=== PATIENT | male | born 1955 | race Caucasian/White ===

== ENCOUNTER → 2018-05-27 12:07 | Outpatient (CLI) | payer OTHER, SELFPAY ==
--- NOTE | 2018-05-27 12:17 | CT_ITS ---
STUDY: CT CHEST WITHOUT CONTRAST REASON FOR EXAM: Male, 62 years old. Calcium over read only. RADIATION DOSAGE (If Supplied By Facility): CTDIvol = ( 17.37 ) mGy, DLP = ( 382.14 ) mGycm TECHNIQUE: Transaxial imaging was performed without the administration of intravenous contrast material. Individualized dose optimization techniques were used for this CT. COMPARISON: None. FINDINGS: The lungs are normal. There is no demonstrated pleural abnormality. There are calcifications of the coronary arteries. There are multiple small lymph nodes within the mediastinum, which are normal in size and morphology most compatible with reactive lymph hyperplasia. Normal hilar regions. Normal unenhanced pulmonary arteries. There is atherosclerotic calcification of the aortic arch arch . Normal osseous structures. There is no demonstrated abnormality of the visualized upper abdomen. CT/CCTA Calcium Scoring IMPRESSION: No acute abnormality is seen. Electronically Signed: Rigo Pressley MD at 11:33 EDT Tel [phone], Service support ,
[2018-05-27 12:24] VITALS: BP 138/78; PULSE 65; RESP 18; O2SAT 96; BMI 35.6
--- NOTE | 2018-05-27 12:59 | CT_ITS ---
STUDY: CT CHEST WITHOUT CONTRAST REASON FOR EXAM: Male, 62 years old. Calcium over read only. RADIATION DOSAGE (If Supplied By Facility): CTDIvol = ( 17.37 ) mGy, DLP = ( 382.14 ) mGycm TECHNIQUE: Transaxial imaging was performed without the administration of intravenous contrast material. Individualized dose optimization techniques were used for this CT. COMPARISON: None. FINDINGS: The lungs are normal. There is no demonstrated pleural abnormality. There are calcifications of the coronary arteries. There are multiple small lymph nodes within the mediastinum, which are normal in size and morphology most compatible with reactive lymph hyperplasia. Normal hilar regions. Normal unenhanced pulmonary arteries. There is atherosclerotic calcification of the aortic arch arch . Normal osseous structures. There is no demonstrated abnormality of the visualized upper abdomen. CT/Limited Chest CT w/CCTA IMPRESSION: No acute abnormality is seen. Electronically Signed: Rigo Pressley MD at 11:33 EDT Tel [phone], Service support ,
--- NOTE | 2018-05-27 20:27 | CA.SCORE ---
Calcium Scoring Date of Study:: 05/27/18 Coronary Calcium Scoring: Coronary calcium score: 57.5 Conclusion: Coronary calcium score: 57.5 Results: Procedure: The patient underwent high resolution CT imaging of the chest on 05/27/2018 with attention being paid to the coronary arteries. The images were analyzed for the presence of coronary artery calcification. The patient was reported as tolerating the procedure well with no obvious complications. Impression: Coronary calcium score: 57.5 According to pre-published reference tables/information a coronary calcium score of 57.5 would be considered as compatible with mild plaque burden and likely minimal to mild coronary artery stenosis. This note was generated with Epic Sciencesation software. It may contain incorrect words, spelling, and punctuation that were not noted in checking the note before signing.
--- NOTE | 2018-05-27 20:31 | CCTA_ITS ---
Calcium Scoring Date of Study:: 05/27/18 Coronary Calcium Scoring: Coronary calcium score: 57.5 Conclusion: Coronary calcium score: 57.5 Results: Procedure: The patient underwent high resolution CT imaging of the chest on 05/27/2018 with attention being paid to the coronary arteries. The images were analyzed for the presence of coronary artery calcification. The patient was reported as tolerating the procedure well with no obvious complications. Impression: Coronary calcium score: 57.5 According to pre-published reference tables/information a coronary calcium score of 57.5 would be considered as compatible with mild plaque burden and likely minimal to mild coronary artery stenosis. This note was generated with [employer] software. It may contain incorrect words, spelling, and punctuation that were not noted in checking the note before signing.
== END ==
PROVIDERS: Family Provider Internal Medicine; PCP Internal Medicine; Visit Provider Internal Medicine
DX: I10 Essential (primary) hypertension (principal); Z82.49 Family history of ischemic heart disease and other diseases of the circulatory system
CPT/HCPCS: 75571; 76380

== ENCOUNTER 2018-06-10 08:25 | Day surgery (SDC) | payer OTHER, SELFPAY ==
[2018-06-10] VITALS (7 sets, daily range): BP systolic 111–161; BP diastolic 53–98; PULSE 57–67; RESP 16; TEMP 36.6–37.1; O2SAT 91–98; BMI 35.4
--- NOTE | 2018-06-10 09:46 | PCM.HP.STD ---
Problem List (1) Screening for intestinal cancer Status: Acute History of Present Illness Date of Admission: 06/10/18 The patient is a 62 year old M who presents for screening colonoscopy. In 2012 he had his most recent colonoscopy. He has had a personal history of 2011 of a colon polyp and in situ carcinoid of the terminal ileum. He states he underwent a localized resection of the small bowel area possibly involving the cecum. He otherwise enjoys good health. He is obese. He denies chest pain or shortness of breath. No change of bowel habits. States that he underwent a [facility] physical per Dr. Beckie Xavier with no untoward findings. The patient takes some low-dose metoprolol. Past Medical History Allergies No Known Allergies Allergy (Verified 06/08/18 09:38) Home Medications: Ambulatory Orders Medication Instructions Recorded Atenolol [Tenormin (beta Oumar)] 25 mg PO QHS 06/08/18 Cholecalciferol (Vitamin D3) 1,000 unit PO DAILY 06/08/18 [Vitamin D3] Fexofenadine HCl [Marcelle Allergy] 60 mg PO DAILY 06/08/18 L-Certaline 2 tab PO DAILY 06/08/18 Magnesium 250 mg PO QHS 06/08/18 Multivitamin [Multiple Vitamins] 1 each PO DAILY 06/08/18 Smoking Status: Never smoker Tobacco Use: Non-smoker Review of Systems Constitutional: Denies: Fever Cardiovascular: Denies: Chest Pain Respiratory: Denies: Cough Gastrointestinal: Denies: Abdominal Pain Musculoskeletal: Denies: Muscle pain Skin: Denies: Dryness Neurological: Denies: Balance problems - Lower extremity varicosities Psychiatric: Reports: Anxiety Endocrine: Denies: Change in Body Habitus VTE Information - Inpt Only VTE Present on Admission: No Patient Problems: Active and Suspected Problems Screening for intestinal cancer (Acute) - Physical Exam General: Alert, Oriented x3, Cooperative, No apparent distress HEENT: Atraumatic Oral: Moist Mucosa Neck: Supple, Negative Carotid Bruits Lungs: Clear to auscultation, Normal air movement Cardiovascular: Regular rate, Regular Rhythm Abdomen: Bowel Sounds Present, Soft, Non Tender, Non-Distended Extremities: No clubbing Skin: No rashes Psych/Mental Status: Normal Affect Vital Signs Temp Pulse Resp BP Pulse Ox 97.8 F 57 L 16 147/92 H 98 06/10/18 08:48 06/10/18 08:48 08/10/18 08:48 06/10/18 08:48 06/10/18 08:48 Oxygen Delivery Method Room Air Weight: 268 lb 4.841 oz Body Mass Index (BMI) 35.4 Assessment/Plan All Active Problems Screening for intestinal cancer (Acute) Patient with a personal history of small bowel in situ carcinoid and personal history of colon polyp. I recommend a colonoscopy with possible biopsy or polypectomy is indicated. The patient is aware of the technique, benefits, risks, alternatives. He has had an opportunity to ask and have questions answered. We will proceed as noted. He is on a every five-year schedule for colonoscopy evaluation. Primary care physician Dr. Beckie Morgan M.D., F.A.C.S.
--- NOTE | 2018-06-10 10:18 | PCM.OPRPT ---
Problem List (1) Screening for intestinal cancer Status: Acute Report of Operation Date of Procedure: 06/10/18 Pre-Operative Diagnosis: Personal history of in situ carcinoid of the terminal ileum. Personal history of colon polyps Post-Operative Diagnosis: Severe extensive pancolonic diverticulosis. Patent ileocolonic anastomosis Surgery/Procedure Performed:: Colonoscopy Description of Surgical Findings:: Timeout and informed consent was obtained. 62-year-old gentleman was taken to the endoscopy suite. He was placed in the left lateral decubitus position. Throughout the procedure in aliquots she received a total of 150 mg Demerol and 5.5 mg of Versed is intravenous sedation. Digital rectal exam performed. Grade 2 internal hemorrhoids. 2+ enlarged smooth prostate. No mass lesions. Flexible colonoscope inserted the rectum advanced through a tortuous sigmoid colon extensively severely involved with diverticulosis. The scope was then carefully advanced past the splenic flexure and with transabdominal pressure is advanced through the transverse colon and then into the ascending colon. The ileocolonic anastomosis deep within the right colon was identified. This appeared to be widely patent. I did not see any mass lesions. Diverticulosis extended in a very severe nature throughout the entire colon. The scope was carefully withdrawn from the ascending transverse descending and sigmoid colon. Bowel prep was fair. There was still some semisolid stool and there were stool balls caught within multiple diverticula. I felt that I got an appropriate visualization. Did not see any gross lesions. The scope was retroflexed within the rectum anorectal verge inspected mild hemorrhoidal changes noted. Excess fluid and air was aspirated free the procedure was completed with the patient tolerating it well. Impression Patent ileocolonic anastomosis Severe pancolonic diverticulosis The patient will be recommended on having a follow-up colonoscopy at 5 years with his previous colonoscopy in 2012 Cc: Dr. Beckie Xavier Medications were given at 0951. The procedure was started at 0955. The cecum was reached at 1015. The procedure was completed at 1006. Josep Morgan M.D., F.A.C.S. Type of Anesthesia:: IV Sedation
== END 2018-06-10 11:23 | disposition home or self-care (01) ==
LOC: EN 08:27 → AC 08:28
PROVIDERS: Family Provider Internal Medicine; PCP Internal Medicine; Visit Provider Surgery
PROC: 0DJD8ZZ Inspection of Lower Intestinal Tract, Via Natural or Artificial Opening Endoscopic (ICD-10-PCS; CPT 45378; principal; 2018-06-10 09:25)
DX: Z12.11 Encounter for screening for malignant neoplasm of colon (principal); K57.90 Diverticulosis of intestine, part unspecified, without perforation or abscess without bleeding; K64.8 Other hemorrhoids; I10 Essential (primary) hypertension; Z86.010 Personal history of colon polyps; Z85.060 Personal history of malignant carcinoid tumor of small intestine; Z90.49 Acquired absence of other specified parts of digestive tract
CPT/HCPCS: 45378; 99152; 99153; J7120

== ENCOUNTER → 2018-06-14 12:42 | Outpatient (CLI) | payer OTHER, SELFPAY ==
[2018-06-14 13:44] LABS: Absolute Lymphocyte Count 1.31 X10^3/ul (0.83-4.51); Absolute Neutrophil Count 2.6 X10^3/uL (2.0-7.7); Basophil# 0.03 X10^3/uL; Basophil% 0.6 % (0-1); Eosinophil# 0.12 X10^3/uL; Eosinophils% 2.6 % (0-5); Hematocrit 52.5 % (40-54); Hemoglobin 17.8 g/dl (13.0-16.5); Lymphocyte # 1.31 X10^3/ul (4.0); Lymphocyte % 28.1 % (19-41); Mean Corp Hgb Conc 33.9 g/gl (32-36); Mean Corpuscular Hgb 32.7 pg (27.0-32.0); Mean Corpuscular Volume 96.5 fL (80-94); Mean Platelet Vol. 10.1 fl (6.2-12.0); Monocyte# 0.59 X10^3/uL; Monocyte% 12.6 % (0-10); Neutrophil # 2.61 X10^3/uL (2.7-7.7); Neutrophil % 55.9 % (47-70); Platelet Count 175 K/mm3 (150-450); RBC Distribution Width CV 12.6 % (11.6-14.6); RBC Distribution Width SD 45.1 fl (35.1-43.9); Red Blood Count 5.44 M/mm3 (4.6-6.2); White Blood Count 4.7 K/mm3 (4.4-11.0)
[2018-06-14 13:47] LABS: POSITIVE COUNT NO; POSITIVE DIFFERENTIAL NO; POSITIVE MORPHOLOGY NO
== END ==
PROVIDERS: Family Provider Internal Medicine; PCP Internal Medicine; Visit Provider Surgery
DX: R10.9 Unspecified abdominal pain (principal); M54.9 Dorsalgia, unspecified
CPT/HCPCS: 36415; 85025

== ENCOUNTER → 2019-02-03 10:30 | Outpatient (CLI) | payer OTHER, SELFPAY ==
[2018-06-10 08:48] VITALS: BMI 35.4
--- NOTE | 2019-02-03 10:34 | RAD_ITS ---
STUDY: X-RAY - LUMBAR SPINE REASON FOR EXAM: Male, 63 years old. P Back Pain RAD Spine TECHNIQUE: 5 view(s) of the lumbar spine were obtained. COMPARISON: None FINDINGS: Normal lumbar lordosis. There is multilevel endplate spondylosis of the lumbar vertebrae. There is multi-level degenerative disc disease with multi-level disc space narrowing. There is atherosclerotic calcification of the abdominal aorta. RAD/L/S Spine Min 4 Views IMPRESSION: Degenerative changes of the spine. Electronically Signed: Sergio Wayne MD at 8:59 EDT Tel , Service support ,
== END ==
PROVIDERS: Family Provider Internal Medicine; PCP Internal Medicine; Referring Provider Internal Medicine; Visit Provider Internal Medicine
DX: M54.5 Low back pain (principal)
CPT/HCPCS: 72110

== ENCOUNTER 2019-03-14 14:00 | Outpatient (RCR) | payer OTHER, SELFPAY ==
--- NOTE | 2018-11-18 16:17 | HP.PTEVAL_ITS ---
Patient's Visit Information NADINE CARRILLO is a 63 year old M referred to Physical Therapy by Beckie Xavier MD with a diagnosis of LOW BACK PAIN. Date of Evaluation: 11/18/18 Physical Therapist: Korina Duran PT, Cert MDT - Visit Plan Frequency: 2-3x /Week Duration: 4-6 Weeks Plan: *GOES BY SOL. AQUATIC THERAPY FOR PAIN RELEIF, POSTURE CORRECTION/STRENGTHENING, INSTRUCTION IN APPROPRIATE BODY MECHANICS AND ACTIVITY MODIFICATIONS. DLS WITH A NEUTRAL SPINE. JEREMIAH LE ROM, STRETCHING AND STRENGTHENING. HEP INSTRUCTION. - Subjective Findings: Work/Leisure: RETIRED. HAS MS AND PATIENT HELPS WITH TRANSFERS. ON A HOME EX PROGRAM. Disability: NO. Present symptoms: LOW BACK AND SACRAL AREA PAIN AND JEREMIAH THIGH PAIN. ALSO JEREMIAH BUTTOCK PAIN. TIGHTNESS IN LOW BACK THAT WRAPS AROUND HIPS. PAIN IN THE THIGHS IS FLEETING. LBP LINGERS. NO NUMBNESS OR TINGLING. Present since: ABOUT A MONTH AGO. Pain Scale: WORST 9/10, LEAST 0/10 (IN THIGHS AND LBP RANGES 0-3/10). Currently: LBP 1/10, THIGHS 0/10. C ommenced as a result of: NO APPARENT REASON. Symptoms at onset: THIGHS. Worse: HIP FLEXION, STANDING, TRANSFERRING STANDING TO SIT AND RISING FROM SITTING, LOW BACK ACHE IN SITTING, BENDING, CROUCHING, SIDE STEPPING, ANY TWISTING MOTION. MAY RANDOMLY COME ON WITH MVMTS LIKE WALKING BUT NOT GERNERALLY NOT WHEN STILL. Better: NOTHING. Disturbed sleep: NO. Previous history/Previous treatment: UNREMARKABLE. Coughing/sneezing/straining: NEGATIVE. Gait: NORMAL. Difficulty initiating urinatin: NO. Accidents: NO. Unexplained weight loss: NO. Imaging: NO. PMH: HTN, VERICOSE VEINS, C/SPINE ARTHRITIS, SEASONAL ALLERGIES, DIVERTICULOSIS OF COLON. 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 PLANTAR FASCITIS. PLOF (Prior Level of Function): ABLE TO DO HIP FLEXION, STANDING, SITTING, BENDING, CROUCHING, SIDE STEPPING, ANY TWISTING MOTIONS WITHOUT PAIN PRIOR TO THIS ONSET. OTHER: PATIENT REPORTS HER THINKS HE NEEDS STRETCHING. REPORTS HE SLEEPS ON HIS BACK WITH HIS LEGS ELEVATED FOR VARICOSE VEINS AND HEAD SLIGHTLY ELEVATED. - Objective Sitting/Standing Posture: POOR. PATIENT IS SLOUCHED THROUGHOUT MOST OF SESSION AND HAS FORWARD HEAD AND ROUNDED SHOULDERS. Lordosis: MILDLY REDUCED. Lateral shift: NO. Relevant shift: N/A. Active Correction of posture: NE. Other Observations: INDEP GAIT INTO PT WITHOUT ANY ASSISTIVE DEVICES AND WITHOUT ANY LOB. INDEP TRANSFER SIT TO STAND WITHOUT UE ASSIST. Motor deficit: JEREMIAH LE'S GROSSLY 5/5 WITH MMT'ING EXCEPT HIPS GRADED 4/5. Sensory deficit: NO. ROM deficit: TIGHT JEREMIAH HIP FLEXORS, HS'S AND GASTROC SOLEUS COMPLEX'S. Dural Signs: NEGATIVE JEREMIAH LE'S. Lumbar mvmt loss: flex - MIN. ext - JOANA - INCREASES LBP AND PRODUCES JEREMIAH HIP PAIN. R SG - MOD - MILD INCREASED LBP. L SG - MOD - MILD INCREASED LBP. Core strength: POOR. Palpation: NO ACUTE TENDERNESS WITH PALPATION OF LOWER THORACIC, LUMBAR, SACRAL OR HIP REGIONS. - Goals Goal 1:: DECREASE C/O BACK AND LE SX'S Goal Time Frame: 4-6 Weeks Goal 2:: IMPROVE PERSONAL CARE, LIFTING, WALKING, SITTING, STANDING AND HOMEMAKING FUNCTION Goal Time Frame: 4-6 Weeks Goal 3:: INSTRUCT IN PROPHYLAXIS Goal Time Frame: 4-6 Weeks - Rehabilitation Potential Rehabilitation Potential: Fair - Anticipated Interventions Patient/Client Instruction: Educate patient on: Condition, Plan of Care, Risk Factors, Benefits of Fitness Program For the Purpose of:: To improve self management Therapeutic Exercise to Include: Strength training, Body mechanics, Postural training, Flexibilty training, In an aquatic setting, Dynamic Lumbar Stabilization For the Purpose of:: To decrease pain, To increase ROM, To improve muscle performance and motor function, To increase tolerance to activity/condition/position, To improve ability of physical actions for home/community/work/leisure Thank you for the opportunity to evaluate your patient. For Medicare and Medicare HMO plans, please review the plan of care and approve it. It will need to be FAXED BACK to us at [phone] for Medicare purposes. For Medicare only, by signing this I certify the plan of care. Please let me know if there are questions or concerns regarding this plan of care. Physician Signature: Date:
--- NOTE | 2018-12-29 16:47 | HP.PT.NRP ---
HP - Discharge Summary (1) - Patient Information NADINE CARRILLO was seen in my office for initial evaluation on 11/18/18. The following Plan of Care was established for this patient: Initial Frequency: 2-3x /Week Initial Duration: 4-6 Weeks - Anticipated Interventions Patient/Client Instruction: Educate patient on: Condition, Plan of Care, Risk Factors, Benefits of Fitness Program For the Purpose of:: To improve self management Therapeutic Exercise to Include: Strength training, Body mechanics, Postural training, Flexibilty training, In an aquatic setting, Dynamic Lumbar Stabilization For the Purpose of:: To decrease pain, To increase ROM, To improve muscle performance and motor function, To increase tolerance to activity/condition/position, To improve ability of physical actions for home/community/work/leisure This patient was last seen in our office 11/25/18. Pertinent comments regarding their Physical therapy will appear below: This patient has not returned to Physical Therapy and is appropriate to return to MD for further follow-up as needed. At this point I will be discontinuing this patient from physical therapy. I would be happy to see this patient again in the future if found appropriate by the physician. Thank you! Korina Duran, PT, Cert MDT
--- NOTE | 2019-02-14 12:24 | HP.PTREVAL ---
Beckie Xavier MD, It has been my pleasure to treat NADINE CARRILLO over the last 3 visits for LOW BACK PAIN. Please see the progress note below for an update on the physical therapy plan of care! Subjective: PATIENT REPORTS HE IS BETTER THAN HE WAS ORIGINALLY AND IS HOPEFUL THAT HE WILL BE ABLE TO PARTICIPATE IN THERAPY CONSISTANTLY NOW. REQUESTING AQUATIC THERAPY ORIGINALLY PLANNED. CURRENTLY HE HAS C/O CONSTANT LOW BACK PAIN RANGING 1-6/10 AND JEREMIAH HIP AND BUTTOCK PAIN RIGHT > LEFT. ALSO JEREMIAH THIGH PAIN RIGHT > LEFT BUT NO PAIN, NUMBNESS OR TINGLING BELOW THE KNEES. INTERMITTENT LEG PAIN RANGES 0-8/10. PATIENT REPORTS HE HAD LOW BACK X-RAY AND BLOODWORK. HE REPORTS HIS BLOODWORK WAS NORMAL. HE REPORTS HIS X-RAY ([facility]) SHOWS DEGENERATIVE CHANGES, SCOLIOSIS, AND DDD. HE STARTED CELEBREX January AND HE THINKS IT IS HELPING. HE REPORTS HIS SYMPTOMS ARE DIFFERENT NOW THAN WHEN HE STARTED PT. NOW NO STABBING PAIN IN THIGHS. NOW THE PAIN IS PRIMARILY IN LOW BACK AND BUTTOCKS. PATIENT REPORTS HIS LOW BACK PAIN IS MORE CONSTANT NOW. WORSE: AM - PAIN IS AT ITS WORST, CROUCHING, ANYTHING THAT INVOLVES BENDING FORWARD. BETTER: HEAT, CELEBREX, FREQUENT CHANGE OF POSITION, USE OF LUMBAR SUPPORT IN SITTING. PATIENT REPORTS HE WAS ONLY ABLE TO DO ONE WATER SESSION SO FAR AND ALTHOUGH HE WAS WORSE AFTER HE WANTS TO TRY AGAIN. PATIENT IS ALSO REQUESTING FURTHER LAND INSTRUCTION AND TRAINING IN PROPER POSTURE CONTROL AND BODY MECHANICS. PATIENT REPORTS IT IS UNREALISTIC FOR HIM TO BE ABLE TO COME TO PT MORE THAN 1 TIME PER WEEK. Objective/Function: Sitting/Standing Posture: POOR BUT PATIENT DID BRING LUMBAR SUPPORT TO USE IN SITTING WHICH HELPS CORRECTION. Lordosis: MILDLY REDUCED. Lateral shift: NO. Relevant shift: N/A. Active Correction of posture: NE. Other Observations: INDEP GAIT INTO PT WITHOUT ANY ASSISTIVE DEVICES AND WITHOUT ANY LOB. INDEP TRANSFER SIT TO STAND WITHOUT UE ASSIST. NO C/O INCREASED PAIN. Motor deficit: JEREMIAH LE'S GROSSLY 5/5 WITH MMT'ING EXCEPT HIPS GRADED 4/5. Sensory deficit: NO. ROM deficit: TIGHT JEREMIAH HIP FLEXORS, HS'S AND GASTROC SOLEUS COMPLEX'S. Dural Signs: NEGATIVE JEREMIAH LE'S. Lumbar mvmt loss: flex - MIN - NE. ext - JOANA - NO C/O INCREASED PAIN BUT FEELS STIFF. R SG - MOD - MILD INCREASED LBP. L SG - MOD - NE. Core strength: POOR Plan Plan: *GOES BY [facility]*. RESUME AQUATIC THERAPY FOR PAIN RELEIF, POSTURE CORRECTION/STRENGTHENING, INSTRUCTION IN APPROPRIATE BODY MECHANICS AND ACTIVITY MODIFICATIONS. DLS WITH A NEUTRAL SPINE. JEREMIAH LE ROM, STRETCHING AND STRENGTHENING. HEP INSTRUCTION. Goals Goal 1:: DECREASE C/O BACK AND LE SX'S Goal Time Frame: 4-6 Weeks Goal 2:: IMPROVE SOCIAL LIFE, STANDING AND HOMEMAKING FUNCTION. Goal Time Frame: 4-6 Weeks Goal 3:: INSTRUCT IN PROPHYLAXIS Goal Time Frame: 4-6 Weeks Anticipated Interventions Patient/Client Instruction: Educate patient on: Condition, Plan of Care, Risk Factors, Benefits of Fitness Program For the Purpose of:: To improve self management Therapeutic Exercise to Include: Strength training, Body mechanics, Postural training, Flexibilty training, In an aquatic setting, Dynamic Lumbar Stabilization For the Purpose of:: To decrease pain, To increase ROM, To improve muscle performance and motor function, To increase tolerance to activity/condition/position, To improve ability of physical actions for home/community/work/leisure Please do not hesitate to contact me at [phone] by phone or if you have questions or concerns regarding this new plan of care! Sincerely, Korina Duran, PT, Cert MDT
--- NOTE | 2019-04-11 11:55 | HP.PT.NRP ---
HP - Discharge Summary (1) - Patient Information NADINE CARRILLO was seen in my office for initial evaluation on 11/18/18. The following Plan of Care was established for this patient: Initial Frequency: 2-3x /Week Initial Duration: 4-6 Weeks - Anticipated Interventions Patient/Client Instruction: Educate patient on: Condition, Plan of Care, Risk Factors, Benefits of Fitness Program For the Purpose of:: To improve self management Therapeutic Exercise to Include: Strength training, Body mechanics, Postural training, Flexibilty training, In an aquatic setting, Dynamic Lumbar Stabilization For the Purpose of:: To decrease pain, To increase ROM, To improve muscle performance and motor function, To increase tolerance to activity/condition/position, To improve ability of physical actions for home/community/work/leisure This patient was last seen in our office 03/14/19. Pertinent comments regarding their Physical therapy will appear below: This patient has not returned to Physical Therapy and is appropriate to return to MD for further follow-up as needed. At this point I will be discontinuing this patient from physical therapy. I would be happy to see this patient again in the future if found appropriate by the physician. Thank you! Korina Duran, PT, Cert MDT
== END 2019-03-14 19:00 | disposition home or self-care (01) ==
LOC: PT 14:00
PROVIDERS: Family Provider Internal Medicine; PCP Internal Medicine; Visit Provider Internal Medicine
DX: M54.5 Low back pain (principal)
CPT/HCPCS: 97113; 97162; 97530

== ENCOUNTER 2019-05-11 00:04 | Emergency (ER) | payer SELFPAY ==
[2019-05-11 00:05] VITALS: BP 156/93; PULSE 104; RESP 20; TEMP 37; O2SAT 92; BMI 37.8
[2019-05-11 00:11] VITALS: O2SAT 93
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
--- NOTE | 2019-05-11 00:14 | ED.RN ---
DEPUTY AT BEDSIDE.
[2019-05-11 00:15] VITALS: BP 137/92; PULSE 98; RESP 19; O2SAT 92
[2019-05-11 01:22] VITALS: BP 131/84; O2SAT 93
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
[2019-05-11] MEDS: Cephalexin 250 MG Capsule 500 MG PO (01:36)
== END 2019-05-11 02:42 | disposition home or self-care (01) ==
PROVIDERS: Emergency Provider Emergency Medicine; Family Provider Internal Medicine; PCP Internal Medicine
DX: S81.802A Unspecified open wound, left lower leg, initial encounter (principal); W34.00XA Accidental discharge from unspecified firearms or gun, initial encounter; Y93.9 Activity, unspecified; Y92.9 Unspecified place or not applicable; Y99.9 Unspecified external cause status; E11.9 Type 2 diabetes mellitus without complications; I10 Essential (primary) hypertension; Z79.899 Other long term (current) drug therapy
CPT/HCPCS: 73590; 99284; J7030; A4216

== ENCOUNTER 2019-05-26 08:30 | Outpatient (RCR) | payer SELFPAY ==
[2019-05-12 09:21] VITALS: BP 147/89; PULSE 63; RESP 22; TEMP 36.8; BMI 23.1
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
[2019-05-18 14:10] VITALS: BP 134/75; PULSE 69; RESP 18; TEMP 37.3; BMI 23.1
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
[2019-05-26 08:32] VITALS: BP 134/74; PULSE 64; RESP 18; TEMP 36.6; BMI 23.1
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
== END 2019-05-31 23:59 ==
LOC: WC 08:30
PROVIDERS: Family Provider Internal Medicine; PCP Internal Medicine; Referring Provider Nurse Practitioner; Visit Provider Nurse Practitioner
DX: S81.832A Puncture wound without foreign body, left lower leg, initial encounter (principal); W34.00XA Accidental discharge from unspecified firearms or gun, initial encounter; R60.0 Localized edema; L03.116 Cellulitis of left lower limb; Z79.899 Other long term (current) drug therapy; F17.200 Nicotine dependence, unspecified, uncomplicated; M79.89 Other specified soft tissue disorders
CPT/HCPCS: 11042; 11043; 87070; 87075; 87205; 99213; G0463

== ENCOUNTER 2019-06-26 12:00 | Outpatient (RCR) | payer SELFPAY ==
[2019-06-01 01:12] VITALS: BP 134/74; PULSE 64; RESP 18; TEMP 36.6
[2019-06-02 08:18] VITALS: BP 140/80; PULSE 56; RESP 18; TEMP 36.9; BMI 23.1
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
[2019-06-16 08:43] VITALS: BP 137/79; PULSE 65; RESP 18; TEMP 36.6; BMI 23.1
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
[2019-06-23 08:18] VITALS: BP 137/76; PULSE 61; RESP 20; TEMP 36.4; BMI 23.1
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
[2019-06-26 12:44] VITALS: BP 131/71; PULSE 65; RESP 20; TEMP 37.4; BMI 23.1
== END 2019-07-01 23:59 ==
LOC: WC 12:00
PROVIDERS: Family Provider Internal Medicine; PCP Internal Medicine; Referring Provider Nurse Practitioner; Visit Provider Nurse Practitioner
DX: S81.832A Puncture wound without foreign body, left lower leg, initial encounter (principal); W34.00XA Accidental discharge from unspecified firearms or gun, initial encounter; R60.0 Localized edema; L03.116 Cellulitis of left lower limb; M79.89 Other specified soft tissue disorders
CPT/HCPCS: 11042; 87070; 87075; 87077; 87186; 87205; 97607; 99213; G0463

== ENCOUNTER 2019-07-28 09:30 | Outpatient (RCR) | payer OTHER, SELFPAY ==
[2019-07-02 00:58] VITALS: BP 131/71; PULSE 65; RESP 20; TEMP 37.4
[2019-07-04 16:22] VITALS: BP 133/71; PULSE 65; RESP 18; TEMP 37.2; BMI 23.1
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
[2019-07-07 10:26] VITALS: BMI 23.1
[2019-07-11 14:42] VITALS: BP 126/72; PULSE 61; RESP 18; TEMP 37.3; BMI 23.1
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
[2019-07-14 12:16] VITALS: BP 139/82; PULSE 61; RESP 18; TEMP 36.6; BMI 23.1
[2019-07-17 08:59] VITALS: BP 122/73; PULSE 60; RESP 18; TEMP 36.6; BMI 23.1
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
[2019-07-21 09:17] VITALS: BP 132/76; PULSE 59; RESP 18; TEMP 36.8; BMI 23.1
[2019-07-24 09:32] VITALS: BP 132/77; PULSE 57; RESP 16; TEMP 36.6; BMI 23.1
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
[2019-07-28 09:28] VITALS: BP 124/78; PULSE 58; RESP 16; TEMP 37; BMI 23.1
== END 2019-07-31 23:59 ==
LOC: WC 09:30
PROVIDERS: Family Provider Internal Medicine; PCP Internal Medicine; Referring Provider Nurse Practitioner; Visit Provider Nurse Practitioner
DX: S81.832A Puncture wound without foreign body, left lower leg, initial encounter (principal); R60.0 Localized edema; L03.116 Cellulitis of left lower limb; M79.662 Pain in left lower leg; W34.00XA Accidental discharge from unspecified firearms or gun, initial encounter
CPT/HCPCS: 11042; 11045; 87070; 87075; 87077; 87186; 87205; 97605; 97607; 99213; G0463

== ENCOUNTER 2019-08-29 12:45 | Outpatient (RCR) | payer SELFPAY ==
[2019-08-01 00:53] VITALS: BP 124/78; PULSE 58; RESP 16; TEMP 37
[2019-08-01 13:43] VITALS: BP 132/69; PULSE 69; RESP 18; TEMP 36.7; BMI 23.1
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
[2019-08-04 12:08] VITALS: BP 121/72; PULSE 57; RESP 16; TEMP 37.3; BMI 23.1
[2019-08-08 14:45] VITALS: BP 126/74; PULSE 53; RESP 18; TEMP 37.3; BMI 23.1
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
[2019-08-11 09:40] VITALS: BP 132/81; PULSE 55; RESP 18; TEMP 36.4; BMI 23.1
[2019-08-15 14:41] VITALS: BP 124/75; PULSE 60; RESP 16; TEMP 37.6; BMI 23.1
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
[2019-08-18 09:02] VITALS: BP 117/76; PULSE 61; RESP 18; TEMP 37.1; BMI 23.1
[2019-08-22 12:34] VITALS: BP 130/79; PULSE 62; RESP 16; TEMP 37; BMI 23.1
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
[2019-08-29 12:50] VITALS: BP 144/82; PULSE 62; RESP 20; TEMP 36.3; BMI 23.1
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
== END 2019-08-31 23:59 ==
LOC: WC 12:45
PROVIDERS: Family Provider Internal Medicine; PCP Internal Medicine; Referring Provider Nurse Practitioner; Visit Provider Nurse Practitioner
DX: S81.832A Puncture wound without foreign body, left lower leg, initial encounter (principal); W34.00XA Accidental discharge from unspecified firearms or gun, initial encounter; R60.0 Localized edema; M79.662 Pain in left lower leg; T14.8XXA Other injury of unspecified body region, initial encounter; L08.9 Local infection of the skin and subcutaneous tissue, unspecified
CPT/HCPCS: 11042; 29581; 97605; 97607; 99213; G0463

== ENCOUNTER 2019-09-25 08:00 | Outpatient (RCR) | payer SELFPAY ==
[2019-09-01 00:52] VITALS: BP 144/82; PULSE 62; RESP 20; TEMP 36.3
[2019-09-05 12:30] VITALS: BP 133/71; PULSE 63; RESP 20; TEMP 36.6; BMI 23.1
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
[2019-09-12 12:58] VITALS: BP 149/78; PULSE 56; RESP 18; TEMP 36.8; BMI 23.1
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
[2019-09-19 12:39] VITALS: BP 136/82; PULSE 60; RESP 20; TEMP 36.9; BMI 23.1
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
[2019-09-25 08:10] VITALS: BP 119/72; PULSE 55; RESP 20; TEMP 37.7; BMI 23.1
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
== END 2019-09-30 23:59 ==
LOC: WC 08:00
PROVIDERS: Family Provider Internal Medicine; PCP Internal Medicine; Referring Provider Nurse Practitioner; Visit Provider Nurse Practitioner
DX: S81.832A Puncture wound without foreign body, left lower leg, initial encounter (principal); W34.00XA Accidental discharge from unspecified firearms or gun, initial encounter; R60.0 Localized edema; M79.662 Pain in left lower leg; R21 Rash and other nonspecific skin eruption
CPT/HCPCS: 11042; 29581

== ENCOUNTER 2019-10-30 08:30 | Outpatient (RCR) | payer SELFPAY ==
[2019-10-01 00:41] VITALS: BP 119/72; PULSE 55; RESP 20; TEMP 37.7
[2019-10-03 13:08] VITALS: BP 132/77; PULSE 62; RESP 18; TEMP 36.8; BMI 23.1
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
[2019-10-10 12:53] VITALS: BP 135/79; PULSE 54; RESP 18; TEMP 36.4; BMI 23.1
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
[2019-10-17 12:47] VITALS: BP 136/76; PULSE 53; RESP 16; TEMP 36.9; BMI 23.1
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
[2019-10-23 10:53] VITALS: BP 134/77; PULSE 60; RESP 16; TEMP 36.9; BMI 23.1
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
[2019-10-30 08:33] VITALS: BP 120/75; PULSE 62; RESP 18; TEMP 37.7; BMI 23.1
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
== END 2019-10-31 23:59 ==
LOC: WC 08:30
PROVIDERS: Family Provider Internal Medicine; PCP Internal Medicine; Referring Provider Nurse Practitioner; Visit Provider Nurse Practitioner
DX: S81.832A Puncture wound without foreign body, left lower leg, initial encounter (principal); W34.00XA Accidental discharge from unspecified firearms or gun, initial encounter; M79.662 Pain in left lower leg; R60.0 Localized edema
CPT/HCPCS: 11042; 29581

== ENCOUNTER 2019-11-20 14:15 | Outpatient (RCR) | payer SELFPAY ==
[2019-11-01 00:33] VITALS: BP 120/75; PULSE 62; RESP 18; TEMP 37.7
[2019-11-06 09:16] VITALS: BMI 23.1
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
[2019-11-13 09:21] VITALS: BP 117/71; PULSE 81; RESP 18; TEMP 36.6; BMI 23.1
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
[2019-11-20 13:49] VITALS: BP 121/71; PULSE 63; RESP 18; TEMP 36.4; BMI 23.1
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
== END 2019-12-01 23:59 ==
LOC: WC 14:15
PROVIDERS: Family Provider Internal Medicine; PCP Internal Medicine; Referring Provider Nurse Practitioner; Visit Provider Nurse Practitioner
DX: S81.832A Puncture wound without foreign body, left lower leg, initial encounter (principal); W34.00XA Accidental discharge from unspecified firearms or gun, initial encounter; M79.662 Pain in left lower leg; R60.0 Localized edema; Z86.19 Personal history of other infectious and parasitic diseases
CPT/HCPCS: 11042; 29581; 99213; G0463

== ENCOUNTER 2020-07-30 12:30 | Outpatient (RCR) | payer MEDICARE, SELFPAY ==
[2019-12-02 00:36] VITALS: BP 121/71; PULSE 63; RESP 18; TEMP 36.4
[2020-07-25 08:18] VITALS: BP 146/83; PULSE 63; RESP 18; TEMP 36.2; BMI 36.9
[2020-07-25 09:19] VITALS: BP 120/72; PULSE 63; RESP 20; O2SAT 96
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
[2020-07-25 15:22] LABS: ALB/GLOB Ratio 1.3 RATIO (0.9-2.4); AST(SGOT) 25 U/L (15-37); Alanine Aminotransfer ALT/SGPT 33 U/L (16-61); Alkaline Phosphatase 45 U/L (45-117); Anion Gap 8 (5-15); BUN 13 mg/dL (7-18); BUN/Creat Ratio 15.9 RATIO (10-20); CRP < 2.90 mg/L (0.0-3.0); Calcium,Total 9.2 mg/dL (8.5-10.1); Chloride 103 mmol/L (98-107); Creatinine, Serum 0.82 mg/dL (0.70-1.30); EST Glomerular Filtration Rate 101 mL/min (>60); Est Glom Filt Rate - Afr Amer 122 mL/min (>60); Estimated Creatinine Clearance 102.85 ml/min; Glucose 77 mg/dL (74-106); Sodium Level 139 mmol/L (136-145)
[2020-07-30 12:21] VITALS: BP 154/78; PULSE 59; RESP 20; TEMP 35.9; BMI 36.9
== END 2020-07-31 23:59 | disposition home or self-care (01) ==
LOC: WC 12:30
PROVIDERS: Nurse Practitioner; Family Provider Internal Medicine; PCP Internal Medicine; Visit Provider Internal Medicine
DX: I83.028 Varicose veins of left lower extremity with ulcer other part of lower leg (principal); L97.222 Non-pressure chronic ulcer of left calf with fat layer exposed; I83.892 Varicose veins of left lower extremity with other complications; M79.662 Pain in left lower leg; S81.802S Unspecified open wound, left lower leg, sequela; W34.00XS Accidental discharge from unspecified firearms or gun, sequela; Z79.899 Other long term (current) drug therapy
CPT/HCPCS: 11042; 29581; 80053; 86140; 87070; 87075; 87077; 87186; 87205; 99203; G0463

== ENCOUNTER 2020-08-29 09:00 | Outpatient (RCR) | payer MEDICARE, SELFPAY ==
[2020-08-01 00:13] VITALS: BP 154/78; PULSE 59; RESP 20; TEMP 35.9; O2SAT 96
[2020-08-01 09:04] VITALS: BP 130/75; PULSE 55; RESP 18; TEMP 36.2; BMI 36.9
[2020-08-01 09:36] VITALS: BP 126/67; PULSE 56; RESP 16
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
[2020-08-06 13:16] VITALS: BP 129/70; PULSE 64; RESP 17; TEMP 36.3; BMI 36.9
[2020-08-08 08:14] VITALS: BP 142/75; PULSE 57; RESP 18; TEMP 36.1; BMI 36.9
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
[2020-08-13 10:00] VITALS: BP 127/71; PULSE 58; RESP 22; TEMP 36.4; BMI 36.9
[2020-08-15 08:57] VITALS: BP 121/74; PULSE 55; RESP 18; TEMP 36.2; BMI 36.9
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
[2020-08-15 09:51] VITALS: BP 120/74
[2020-08-20 12:58] VITALS: BP 131/76; PULSE 58; RESP 20; TEMP 36.4; BMI 36.9
[2020-08-22 08:19] VITALS: BP 140/94; PULSE 111; RESP 18; TEMP 36.5; BMI 36.9
[2020-08-22 09:18] VITALS: BP 142/83; PULSE 57; RESP 18
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
[2020-08-29 08:49] VITALS: BP 127/80; PULSE 61; RESP 18; TEMP 36.4; BMI 36.9
[2020-08-29 10:08] VITALS: BP 120/87
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
== END 2020-08-31 23:59 ==
LOC: WC 09:00
PROVIDERS: Family Provider Internal Medicine; PCP Internal Medicine; Visit Provider Internal Medicine
DX: L97.222 Non-pressure chronic ulcer of left calf with fat layer exposed (principal); I83.892 Varicose veins of left lower extremity with other complications; Z79.899 Other long term (current) drug therapy
CPT/HCPCS: 11042; 29445; 29581; 97597; 99212; G0463

== ENCOUNTER 2020-09-19 08:00 | Outpatient (RCR) | payer MEDICARE, SELFPAY ==
[2020-09-01 00:08] VITALS: BP 120/87; PULSE 61; RESP 18; TEMP 36.4; O2SAT 96
[2020-09-05 08:23] VITALS: RESP 17; TEMP 35.9; BMI 36.9
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
[2020-09-10 12:45] VITALS: PULSE 68; RESP 16; TEMP 36.2; BMI 36.9
[2020-09-12 09:01] VITALS: BP 151/87; PULSE 59; RESP 18; TEMP 36.6; BMI 36.9
[2020-09-12 09:40] VITALS: BP 148/80; PULSE 60
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
[2020-09-19 07:59] VITALS: BP 152/89; PULSE 61; TEMP 35.9; BMI 36.9
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
== END 2020-09-30 23:59 ==
LOC: WC 08:00
PROVIDERS: Family Provider Internal Medicine; PCP Internal Medicine; Visit Provider Internal Medicine
DX: I83.022 Varicose veins of left lower extremity with ulcer of calf (principal); L97.222 Non-pressure chronic ulcer of left calf with fat layer exposed; I83.892 Varicose veins of left lower extremity with other complications; Z79.899 Other long term (current) drug therapy
CPT/HCPCS: 11042; 15271; 29581; 87070; 87075; 87077; 87186; 87205; Q4186

== ENCOUNTER 2020-10-17 08:00 | Outpatient (RCR) | payer MEDICARE, SELFPAY ==
[2020-10-01 00:12] VITALS: BP 152/89; PULSE 61; RESP 18; TEMP 35.9; O2SAT 96
[2020-10-03 08:11] VITALS: BP 137/71; PULSE 62; RESP 16; TEMP 36.1; BMI 36.9
[2020-10-03 08:37] VITALS: BP 138/70
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
[2020-10-10 09:18] VITALS: BP 127/74; PULSE 58; RESP 18; TEMP 36.1; BMI 36.9
[2020-10-17 08:00] VITALS: BP 146/77; PULSE 61; TEMP 35.8; BMI 36.9
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
== END 2020-10-17 08:27 | disposition home or self-care (01) ==
LOC: WC 08:00
PROVIDERS: Family Provider Internal Medicine; PCP Internal Medicine; Visit Provider Internal Medicine
DX: I83.022 Varicose veins of left lower extremity with ulcer of calf (principal); L97.222 Non-pressure chronic ulcer of left calf with fat layer exposed; R60.0 Localized edema; I83.892 Varicose veins of left lower extremity with other complications; Z87.828 Personal history of other (healed) physical injury and trauma
CPT/HCPCS: 15271; 29581; 99213; Q4186; G0463

== ENCOUNTER → 2021-05-07 13:52 | Outpatient (CLI) | payer MEDICARE, SELFPAY ==
--- NOTE | 2021-05-07 13:55 | VDLE_ITS ---
Reason For Study: Edema LLE Procedure LEFT Exam performed in department. GSV is normal. This is a venous duplex using B-mode, color CFV is compressible, spontaneous, phasic, flow and spectral Doppler. competent, and demonstrates normal A preliminary report was called and/or faxed augmentation. to Dr. Xavier. FV is compressible, spontaneous, phasic, competent and demonstrates normal augmentation. POP V is compressible, spontaneous, phasic, competent and demonstrates normal augmentation. T/P Trunk is compressible. PTV is compressible. LT PerV is compressible. Difficult to visualize Lt PTV. VL/Venous Duplex US, Unilateral Interpretation Summary Deep veins of the left lower extremity are patent and compressible segmentally. There is no evidence of left lower extremity deep vein thrombosis. Valvular competence appears intac t within the proximal deep venous system on the left . The left great saphenous vein appears patent a nd compressible segmentally. Ordering Physician: Beckie Xavier Referring Physician: Beckie Xavier Performed By: Pinky Ley, RDCS, RVT
== END ==
PROVIDERS: PCP Internal Medicine; Referring Provider Internal Medicine; Visit Provider Internal Medicine
DX: R60.0 Localized edema (principal)
CPT/HCPCS: 93971

== ENCOUNTER → 2021-09-15 | Outpatient (CLI) | payer MEDICARE, SELFPAY | END | disposition home or self-care (01) | LOC: LABSPEC 15:14 | PROVIDERS: PCP Internal Medicine; Visit Provider Internal Medicine | DX: R05.9 Cough, unspecified (principal) | CPT/HCPCS: 87635; U0005; U0003 ==

== ENCOUNTER → 2023-03-03 | Outpatient (CLI) | payer MEDICARE, SELFPAY ==
--- NOTE | 2023-03-03 09:52 | BI_ITS ---
MAMMOGRAPHY - BILATERAL DIAGNOSTIC REASON FOR EXAM: Male, 67 years old. Palpable lump in the medial aspect of the right breast. Patient has a history of a colon cancer. PERTINENT HISTORY: Non-contributory. TECHNIQUE: Digital bilateral breast krystal (3D mammographic acquisition) in the CC and MLO projections. 2-D mediolateral oblique (MLO) and craniocaudad (CC) views of both breasts were obtained. CAD: Full Field Digital Mammography with Computer Added Detection was performed. COMPARISON: None. Baseline examination. FINDINGS: Breast Composition: The breasts are almost entirely fatty. There are no dominant masses or suspicious calcifications. No other significant abnormalities are identified. BI/DIAG MAMM W/CAD, BILAT IMPRESSION: Negative diagnostic mammogram. With the patient''s history of a palpable lump in the inferior medial aspect of the right breast, correlation with ultrasound is recommended. ASSESSMENT CATEGORY: BIRADS Category 0: Incomplete. Need additional imaging evaluation. A letter regarding these results will be sent to the patient by the facility within 30 days. Approximately 10% of breast cancers are not detected by mammography. A normal mammogram should not delay biopsy of a clinically suspicious abnormality. Electronically Signed: Rigo Pressley MD at 10:53 EDT ,
--- NOTE | 2023-03-03 09:52 | US_ITS ---
STUDY: ULTRASOUND BREAST - RIGHT REASON FOR EXAM: Male, 67 years old. Palpable lump in the right breast. TECHNIQUE: Axial and longitudinal images of the RIGHT breast were performed with a high resolution ultrasound transducer. # OF IMAGES: 13 COMPARISON: Comparison is made with prior mammogram done earlier today. FINDINGS: RIGHT Breast: The palpable lump corresponds to a 1.5 cm x 1.9 cm x 0.7 cm slightly echogenic well circumscribed nodule at the 2:00 position of the breast at 15 cm from the nipple. This is just deep to the skin surface. This most likely represents a lipoma. US/Breast Limited Unilateral IMPRESSION: The palpable abnormality corresponds to a 1.5 cm x 1.9 cm x 0.7 cm lipoma at the 2:00 position of the breast at 15 cm from the nipple. ASSESSMENT CATEGORY: BIRADS Category 2: Benign. A letter regarding these results will be sent to the patient by the facility within 30 days. Electronically Signed: Rigo Pressley MD at 12:49 EDT ,
== END | disposition home or self-care (01) ==
PROVIDERS: PCP Internal Medicine; Referring Provider Internal Medicine; Visit Provider Internal Medicine
DX: N63.14 Unspecified lump in the right breast, lower inner quadrant (principal)
CPT/HCPCS: 76642; 77062; 77066; G0279

== ENCOUNTER 2023-06-08 08:10 | Day surgery (SDC) | payer MEDICARE, SELFPAY ==
--- NOTE | 2023-06-08 | COLBX_PTH ---
PATIENT: NADINE CARRILLO LOC: EN U#:[id number] AGE/SX: 67/M ROOM: RE06/08/[address]: Dr. Josep Morgan MD : 1955 BED: DIS: 06/08/2023 SPEC #: [id number] RECD: 06/08/23 11:10 STATUS: INDY BALDEV #: [id number] MAC: 06/08/23 00:[address]: Josep Morgan DEPT: SURGICAL PATHOLOGY RECD BY: Medardo Anderson ENTERED: 06/08/23 11:10 SP TYPE: COLON BX OTHR DR: Dr. Beckie Xavier MD Tissues: Ileum, NOS Procedures: Surgery Specimen Level IV HEADER OPERATION: Colonoscopy - open access, biopsy PRE-OP DIAGNOSIS: Screening TISSUE SUBMITTED: Terminal ileum MICROSCOPIC DIAGNOSIS Terminal ileum, biopsy: No pathologic change. AM:sonia 06/09/2023 MICROSCOPIC DESCRIPTION Slides are reviewed. GROSS DESCRIPTION Received in fixative is one container labeled with the patient's name and designated terminal ileum. The specimen consists of one irregular fragment of light wiggins soft tissue that measures 0.4 x 0.3 x 0.1 cm. The specimen is totally submitted in one cassette. / SJ:sonia 06/08/2023 TC:5 CPT: 33743
[2023-06-08] MEDS: Lactated Ringers 1,000 ML 15 ML IV (08:36)
[2023-06-08 08:38] VITALS: BP 121/77; PULSE 64; RESP 18; TEMP 36.3; O2SAT 100; BMI 37.0
--- NOTE | 2023-06-08 09:23 | PCM.HP.STD ---
[facility] - General General Date of Admission: 07/16/20 Date of Service: 06/08/23 Chief Complaint: Personal history of carcinoid and right colectomy. [facility] Narrative NADINE CARRILLO, is a 67 M who presents presents via open access today for a colonoscopy. Previous 1 was June 2018. He has severe diverticulosis no polyps at that time no evidence of recurrent carcinoid. He presents via open access today. [facility] Medical History (Updated 06/07/23 @ 13:20 by Christina Diaz) Alcohol use Cancer Degenerative disc disease Diverticulosis H/O carcinoma in situ of colon HTN (hypertension) Migraines Osteoarthritis Smoker Wears glasses Home Medications L-Certaline 2 tab PO 3XD 06/08/18 [History Last Taken Unknown] atenolol 25 mg tablet 100 mg PO QHS 06/08/18 [History Last Taken Unknown] cholecalciferol (vitamin D3) 25 mcg (1,000 unit) capsule 10,000 unit PO QODAY 06/08/18 [History Last Taken Unknown] fexofenadine 60 mg tablet 180 mg PO DAILY 06/08/18 [History Last Taken Unknown] magnesium 250 mg tablet 400 mg PO QHS 06/08/18 [History Last Taken Unknown] multivitamin 1 ea PO DAILY 06/08/18 [History Last Taken Unknown] ascorbic acid (vitamin C) 500 mg tablet (Vitamin C With Bambi Hips) 1 g PO DAILY 05/11/23 [History Last Taken Unknown] omega-3 fatty acids-fish oil 360 mg-1,200 mg capsule (Fish Oil) 1 cap PO DAILY 05/11/23 [History Last Taken Unknown] turmeric root extract 500 mg capsule 2,250 mg PO TID 05/11/23 [History Last Taken Unknown] vitamin B complex 1 tab PO DAILY 05/11/23 [History Last Taken Unknown] glucosamine-chondroitin 250 mg-200 mg tablet (Osteo Bi-Flex) 1 tab PO BID 06/07/23 [History Last Taken Unknown] Allergy/AdvReac Type Severity Reaction Status Date / Time No Known Allergies Allergy Verified 06/07/23 13:00 Surgical History (Updated 06/07/23 @ 13:20 by Christina Diaz) History of nasal surgery (~1970) Hx of colonoscopy S/P small bowel resection (~2011) s/p tonsillectomy (~1957) Social History (Updated 05/11/23 @ 09:39 by Nanci Black) household members: spouse current occupational status: retired Smoking Status: Current some day smoker tobacco type: cigars ROS Constitutional Constitutional: Reports systems reviewed and no addt'l complaints, except as documented Cardiovascular Cardiovascular: Denies chest pain Respiratory/Chest Respiratory/Chest: Denies shortness of breath at rest Gastrointestinal Gastrointestinal: Denies abdominal pain, change in bowel habits, hematochezia or melena Vital Signs Vital Signs Vital Signs: 06/08/23 08:38 06/08/23 08:38 Temperature 97.4 F L Temperature Source Temporal Pulse Rate 64 Respiratory Rate 18 Respiratory Pattern Normal Blood Pressure 121/77 H Blood Pressure Mean 91 Blood Pressure Source Monitor Blood Pressure Position Semi-Fowlers Blood Pressure Location Right Arm Pulse Ox 100 Oxygen Delivery Method Room Air Weight Weight: 280 lb 9.6 oz Body Mass Index (BMI) 37.0 Physical Exam Const alert, oriented x3 and no apparent distress General Appearance: cooperative and comfortable Eyes General Eye: normal appearance of both eyes Neck General: normal visual inspection Chest inspection of chest normal Resp Effort and Inspection: able to speak in complete sentences and symmetric chest movement Auscultation: clear to auscultation bilaterally Cardio regular rate and regular rhythm GI soft to palpation, non-tender and non-distended Extremity no calf tenderness Neuro oriented x3 Psych thought process normal Assessment & Plan Assessment/Plan (1) Encounter for screening for malignant neoplasm of colon: PLAN: Patient presents for surveillance colonoscopy due to a personal history of carcinoid syndrome. He presents via open access. He is aware of the technique, benefit, risk and alternatives. We will proceed as noted. Josep Morgan M.D., F.A.C.S.
[2023-06-08 10:30] VITALS: BP 107/61; BP 121/77; PULSE 76; RESP 16; TEMP 36.3; O2SAT 95
--- NOTE | 2023-06-08 10:30 | OP.COLON_ITS ---
Patient Name: Demetrius Melchor Procedure Date: 06/08/2023 9:49 AM Date of : 1955 Age: 67 Procedure: Colonoscopy Indications: High risk colon cancer surveillance: Personal history of colonic polyps Providers: Josep Morgan MD Medicines: See the Anesthesia note for documentation of the administered medications Patient Profile: Last Colonoscopy: June 2018. Complications: No immediate complications. Procedure: Pre-Anesthesia Assessment: - Prior to the procedure, a History and Physical was performed, and patient medications and allergies were reviewed. The patient's tolerance of previous anesthesia was also reviewed. The risks and benefits of the procedure and the sedation options and risks were discussed with the patient. All questions were answered, and informed consent was obtained. Prior Anticoagulants: The patient has taken no previous anticoagulant or antiplatelet agents. ASA Grade Assessment: II - A patient with mild systemic disease. After reviewing the risks and benefits, the patient was deemed in satisfactory condition to undergo the procedure. After I obtained informed consent, the scope was passed under direct vision. Throughout the procedure, the patient's blood pressure, pulse, and oxygen saturations were monitored continuously. The colonoscope was introduced through the anus and advanced to the ileocolonic anastomosis. Ileocolonic anastomosis were photographed. Scope In: 9:59:31 AM Scope Withdrawal Time 0 hours 14 minutes 16 seconds Scope Out: 10:22:00 AM Total Procedure Duration Time 0 hours 22 minutes 29 seconds Findings: Hemorrhoids were found on perianal exam. There was evidence of a prior end-to-side ileo-colonic anastomosis in the mid ascending colon. This was patent and was characterized by healthy appearing mucosa. The anastomosis was traversed. Biopsies were taken with a cold forceps for histology. Multiple diverticula were found in the sigmoid colon. A 3 mm polyp was found in the sigmoid colon. The polyp was sessile. Impression: - Hemorrhoids found on perianal exam. - Patent end-to-side ileo-colonic anastomosis, characterized by healthy appearing mucosa. Biopsied. - Diverticulosis in the sigmoid colon. - One 3 mm polyp in the sigmoid colon. Recommendation: - Repeat colonoscopy in 1 year for surveillance. - Telephone my office for pathology results in 1 week 1 small polyp that was partially identified with antegrade scope approach could not be read identified in the sigmoid colon with withdrawal of the scope. Multiple attempts were made with retroflexing of the scope etc was thought to be a small polyp could not be identified. After significant effort elected to abort that we will plan a follow-up colonoscopy at 1 year. - Continue present medications. Procedure Code(s): --- Professional --- 04193, Colonoscopy, flexible; with biopsy, single or multiple Diagnosis Code(s): --- Professional --- Z86.010, Personal history of colonic polyps K64.9, Unspecified hemorrhoids Z98.0, Intestinal bypass and anastomosis status D12.5, Benign neoplasm of sigmoid colon K57.30, Diverticulosis of large intestine without perforation or abscess without bleeding CPT copyright 2017 [employer]. All rights reserved. The codes documented in this report are preliminary and upon educational technologist review may be revised to meet current compliance requirements. Josep Morgan MD 06/08/2023 10:29:56 AM This report has been signed electronically. Number of Addenda: 0 Note Initiated On: 06/08/2023 9:49 AM
--- NOTE | 2023-06-08 10:30 | OP.CCLET_ITS ---
06/08/2023 Beckie Xavier Re : Colonoscopy procedure for Demetrius Kaur Duc This procedure was performed on Thursday, June 08, 2023. My impressions and recommendations are as follows: Impressions : - Hemorrhoids found on perianal exam. - Patent end-to-side ileo-colonic anastomosis, characterized by healthy appearing mucosa. Biopsied. - Diverticulosis in the sigmoid colon. - One 3 mm polyp in the sigmoid colon. Recommendations : - Repeat colonoscopy in 1 year for surveillance. - Telephone my office for pathology results in 1 week 1 small polyp that was partially identified with antegrade scope approach could not be read identified in the sigmoid colon with withdrawal of the scope. Multiple attempts were made with retroflexing of the scope etc was thought to be a small polyp could not be identified. After significant effort elected to abort that we will plan a follow-up colonoscopy at 1 year. - Continue present medications. My findings are described in the full procedure note, which is enclosed. If I can be of further assistance, please feel free to contact me at Doctor phone number(s): Work: . Sincerely, Josep Morgan MD 06/08/2023 10:29:56 AM This report has been signed electronically.
[2023-06-08 10:35] VITALS: BP 102/71; BP 121/77; PULSE 74; RESP 16; O2SAT 95
[2023-06-08 10:40] VITALS: BP 106/58; BP 121/77; PULSE 68; RESP 16; O2SAT 97
[2023-06-08 10:45] VITALS: BP 113/70; BP 121/77; PULSE 65; RESP 16; TEMP 36.9; O2SAT 98
[2023-06-08 11:34] VITALS: BP 121/77
== END 2023-06-08 11:35 | disposition home or self-care (01) ==
LOC: EN 08:11 → AC 08:35
PROVIDERS: PCP Internal Medicine; Referring Provider Internal Medicine; Visit Provider Surgery
PROC: 0DJD8ZZ Inspection of Lower Intestinal Tract, Via Natural or Artificial Opening Endoscopic (ICD-10-PCS; CPT 45378; principal; 2023-06-08 09:25)
DX: Z12.11 Encounter for screening for malignant neoplasm of colon (principal); K57.30 Diverticulosis of large intestine without perforation or abscess without bleeding; K64.4 Residual hemorrhoidal skin tags; F17.290 Nicotine dependence, other tobacco product, uncomplicated; I10 Essential (primary) hypertension; Z86.010 Personal history of colon polyps; K63.5 Polyp of colon; Z90.49 Acquired absence of other specified parts of digestive tract; Z85.030 Personal history of malignant carcinoid tumor of large intestine; Z53.09 Procedure and treatment not carried out because of other contraindication; Z86.004 Personal history of in-situ neoplasm of other and unspecified digestive organs; Z98.0 Intestinal bypass and anastomosis status
CPT/HCPCS: 44389; 88305; J7120; J2405

== ENCOUNTER → 2023-07-20 | Outpatient (CLI) | payer MEDICARE, SELFPAY ==
--- NOTE | 2023-07-20 11:36 | ECHOCS_ITS ---
Reason For Study: Abnormal EKG Procedure This was a 2D Doppler, Color Flow transthoracic echocardiogram. The study was technically difficult. Contrast injection was performed. Exam performed in department. Left Ventricle Normal LV size. Left ventricular systolic function is normal. The estimated ejection fraction is 60 %. Stage 1 diastolic dysfunction. No regional wall motion abnormalities noted. Right Ventricle Normal RV size. Normal systolic function. Atria The left atrium is moderately enlarged. Normal right atrium. Mitral Valve Normal mitral valve. Tricuspid Valve Normal tricuspid valve. Aortic Valve The aortic valve is not well visualized. Pulmonic Valve Normal pulmonic valve. Great Vessels Normal aortic root. The pulmonary artery is normal size. Normal inferior vena cava. Pericardium/Pleural No pericardial effusion. Medication 22 gauge I.V. with prn adaptor inserted into right arm. Diluted definity 1.5ml given slow IV push to enhance endocardial definition. MMode/2D Measurements & Calculations LVIDd: 4.9 cm IVSd: 1.3 cm Ao root diam: 3.8 cm LVIDs: 3.2 cm LVPWd: 1.3 cm LA dimension: 4.3 cm RVDd: 3.9 cm FS: 35.9 % LAV(MOD-bp): 90.5 ml LVAd ap4: 38.8 cm2 SV(MOD-sp4): 80.8 ml LAV(MOD-bp) Indexed: 36.4 ml/m2 LVLd ap4: 9.7 cm LAV(MOD-sp2): 87.4 ml EDV(MOD-sp4): 131.3 ml LAV(MOD-sp4): 84.5 ml EDV(sp4-el): 132.1 ml LVAs ap4: 19.9 cm2 LVLs ap4: 6.6 cm ESV(MOD-sp4): 50.4 ml ESV(sp4-el): 50.8 ml EF(MOD-sp4): 61.6 % EF(sp4-el): 61.5 % SV(sp4-el): 81.3 ml LA A4 area: 25.8 cm2 RA A4 area: 19.8 cm2 TAPSE: 1.7 cm Time Measurements MV dec time: 0.25 sec Doppler Measurements & Calculations MV E max rubio: 67.7 cm/sec Lat Peak E' Rubio: 11.6 cm/sec Med Peak E' Rubio: 10.4 cm/sec MV A max rubio: 70.2 cm/sec E/E' lat: 5.8 E/E' med: 6.5 MV E/A: 0.97 MV V2 max: 88.0 cm/sec MV P1/2t max rubio: 75.8 cm/sec Ao V2 max: 130.1 cm/sec MV max P.1 mmHg MV P1/2t: 79.7 msec Ao max P.8 mmHg MV V2 mean: 43.4 cm/sec Ao V2 mean: 91.5 cm/sec MV mean P.91 mmHg MV dec slope: 278.3 cm/sec2 Ao mean P.8 mmHg MV V2 VTI: 30.1 cm MVA(P1/2t): 2.8 cm2 Ao V2 VTI: 29.7 cm LV V1 max: 115.6 cm/sec PA V2 max: 68.9 cm/sec LV V1 max P.3 mmHg ECHO/Echo Complete W/ Contrast Interpretation Summary Normal LV size. Left ventricular systolic function is normal. The estimated ejection fraction is 60 %. The left atrium is moderately enlarged. Stage 1 diastolic dysfunction. Contrast injection was performed. Ordering Physician: Beckie Xavier Referring Physician: Beckie Xavier Performed By: Edwin Hollis RCS
== END | disposition home or self-care (01) ==
LOC: CVS 11:34
PROVIDERS: PCP Internal Medicine; Referring Provider Internal Medicine; Visit Provider Internal Medicine
DX: R94.31 Abnormal electrocardiogram [ECG] [EKG] (principal)
CPT/HCPCS: 93306; Q9957; A4216; C8929

== ENCOUNTER 2024-06-16 06:26 | Day surgery (SDC) | payer MEDICARE, SELFPAY ==
[2024-06-16] VITALS (8 sets, daily range): BP systolic 106–141; BP diastolic 68–84; PULSE 54–63; RESP 16–18; TEMP 36.2–36.5; O2SAT 97–100; BMI 37.4
[2024-06-16] MEDS: Lactated Ringers 1,000 ML 15 ML IV (07:00)
--- NOTE | 2024-06-16 07:15 | PRE.ANES_ITS ---
ASA Classification* ASA Classification ASA Classification: 3 Assessment & Plan Anesthesia* Anesthesia Assessment Anesthesia Assessment: Discussed sedation and/or anesthesia options, risks, benefits, and alternatives with patient/parents/legal guardian/POA. Questions invited. The patient/parents/legal guardian/POA seems to understand and agrees to proceed with anesthesia plan. Reviewed the physical assessment, medical history, allergy history and patient home medications list prior to surgery/procedure/anesthetic and documented any changes. Performed airway and anesthesia risk assessments. Anesthesia Type Anesthesia Type: MAC Anesthesia Focused Assessment* Temperature: 97.2 F Pulse Rate: 54 Blood Pressure: 141/84 Respiratory Rate: 18 Pulse Ox: 100 Airway Assessment Mouth opens: >3 cm Mallampati Score: II Focused Labs Anesthesia Preop lab: CBC WBC 4.7 K/mm3 (4.4-11.0) 06/14/18 12:45 RBC 5.44 M/mm3 (4.6-6.2) 06/14/18 12:45 Hgb 17.8 g/dl (13.0-16.5) H 06/14/18 12:45 Hct 52.5 % (40-54) 06/14/18 12:45 Plt Count 175 K/mm3 (150-450) 06/14/18 12:45 CHEMISTRY Potassium 4.0 mmol/L (3.5-5.1) 07/25/20 09:00 Sodium 139 mmol/L (136-145) 07/25/20 09:00 BUN 13 mg/dL (7-18) 07/25/20 09:00 Creatinine 0.82 mg/dL (0.70-1.30) 07/25/20 09:00 Glucose 77 mg/dL (74-106) 07/25/20 09:00 COAG Pre-Assessment Diagnosis/Proposed Procedure Planned Operative Procedure(s): cscope Anesthesia History 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 When Was Last Pacemaker Check QUESTION #4 FULL TEXT: You/Your Family Experience fever (hyperthermia) with Anesthesia Last Oral Intake Last Oral intake: Last Oral Intake NPO since 03:00 06/16/24 06:50 Meds taken in AM with sips of No 06/16/24 06:50 water? Meds patient instructed to take am of surgery PONV PONV - hardwood floor finisher: PONV - hardwood floor finisher Female No 06/13/24 12:29 HX of Motion Sickness No 06/13/24 12:29 HX of N/V After Surgery No 06/13/24 12:29 Non-Smoker No 06/13/24 12:29 Duration of Surgery greater No 06/13/24 12:29 than 60 minutes Number of Risk Factors PONV Score Height & Weight Height & Weight: Anesthesia: Height & Weight Height 6 ft 1 in 06/16/24 06:50 Weight: 128.8 kg 06/16/24 06:50 Body Mass Index (BMI) 37.4 06/16/24 06:50 Respiratory Assessment Respiratory Assessment - hardwood floor finisher: Respiratory Tract Infection Hx - hardwood floor finisher Hx Respiratory Tract Infection No 06/13/24 12:29 STOP Sleep Apnea STOP Sleep Apnea - hardwood floor finisher: STOP Sleep Apnea - hardwood floor finisher Hx Hypertension Yes: CONTROLLED WITH MED 06/13/24 12:29 Hx Sleep Apnea No 06/13/24 12:29 CPAP BIPAP Do you snore loudly (louder No 06/13/24 12:29 than talking or can be heard Do you often feel tired/ No 06/13/24 12:29 fatigued/ sleepy during daytime? Has anyone observed you stop No 06/13/24 12:29 breathing during sleep? STOP Results Negative 06/13/24 12:29 QUESTION #5 FULL TEXT : Do you snore loudly (louder than talking or can be heard through closed doors)? Tobacco Use History Tobacco Use History - hardwood floor finisher: Tobacco Use History - hardwood floor finisher Tobacco Use Smoking Status Current some day smoker 06/13/24 12:29 Hx Tobacco Use Yes 06/13/24 12:29 Years Smoking Packs Smoked per Day Smoking Cessation Date was within the last 15 years Hx Smoking Cessation Date Hx Smoking Cessation Counseling Hematologic Medial History Hematologic Hx - hardwood floor finisher: Hematologic Medical Hx - hard candy spinner Hx of Blood Transfusion No 06/13/24 12:29 Hx of Transfusion in last 3 No 06/13/24 12:29 Months Date of Last Transfusion (if within last 3 months) Ever experience any problems No 06/13/24 12:29 with transfusion(s)? Specify any problems Hx of Preganancy in last 3 N/A 06/13/24 12:29 Months Nurse Filling Out Transfusion NBUCHER 06/13/24 12:29 & Questions: Date: 06/13/24 06/13/24 12:29 Time: 12:31 06/13/24 12:29 Patient unable to answer at this time (ie. confused, unrespo /Reproduction History /Reproductive History - hardwood floor finisher: /Reproductive Hx- hardwood floor finisher Hx Now No 06/13/24 12:29 Gestational Age (in weeks): EDC: Hx Hx Para Hx Section SAB No 06/13/24 12:29 Active Medications Active Medications: Current Medications Generic Name Dose Route Start Last Admin Trade Name Freq PRN Reason Stop Dose Admin Lactated Ringer's 1,000 mls @ 15 mls/hr 06/16/24 06:45 06/16/24 07:00 IV 15 mls/hr .Q48H JAIDEN Administration PFSH Medical History History of echocardiogram Hx of colonic polyps Wears glasses Cancer Alcohol use Degenerative disc disease Osteoarthritis Diverticulosis Smoker H/O carcinoma in situ of colon Migraines HTN (hypertension) Home Medications ?Medication ?Instructions ?Recorded ?Last Taken ?Type atenolol 25 mg tablet 100 mg PO QHS 06/08/18 06/15/24 History cholecalciferol (vitamin D3) 25 10,000 unit PO QODAY 06/08/18 06/14/24 History mcg (1,000 unit) capsule fexofenadine 60 mg tablet 180 mg PO DAILY 06/08/18 06/15/24 History magnesium 250 mg tablet 400 mg PO QHS 06/08/18 06/15/24 History multivitamin 1 ea PO DAILY 06/08/18 06/10/24 History ascorbic acid (vitamin C) 500 mg 1 g PO DAILY 05/11/23 06/15/24 History tablet (Vitamin C With Bambi Hips) turmeric root extract 500 mg 2,250 mg PO BID 05/11/23 06/10/24 History capsule vitamin B complex 1 tab PO DAILY 05/11/23 06/15/24 History glucosamine-chondroitin 250 mg-200 1 tab PO BID 06/07/23 06/10/24 History mg tablet (Osteo Bi-Flex) citrulline 600 mg capsule 1.2 g PO BID 04/21/24 06/15/24 History krill oil 500 mg capsule 1,000 mg PO QDAY 04/21/24 06/10/24 History montelukast 10 mg tablet 10 mg PO DAILY 04/21/24 06/15/24 History Allergy/AdvReac Type Severity Reaction Status Date / Time No Known Allergies Allergy Verified 06/16/24 06:48 Surgical History History of nasal surgery (~1970) Hx of colonoscopy S/P small bowel resection (~2011) s/p tonsillectomy (~1957) Social History household members: spouse current occupational status: retired Smoking Status: Current some day smoker tobacco type: cigars alcohol intake: current Alcohol type: hard liquor Review of Systems (Anesthesia) ROS Narrative System reviewed and no additional complaints, except as documented.
--- NOTE | 2024-06-16 07:28 | H&P.OPEN ---
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 This was removed via a ileocecectomy procedure in 2011. His last colonoscopy was 1 year ago with my partner, Dr. Morgan. At that time a small (3 mm) sigmoid polyp was found but patient was referred for repeat colonoscopy in 1 year due to suboptimal prep. He confirms His preappointment questionnaire that He has not experienced any change in His bowel habits-and particularly denies any notice of blood(Apart from very minor bleeding from external hemorrhoids which is readily apparent to him). Lastly He confirms that His prep was completed successfully and that [his/her] output is now clear. [facility] Medical History History of echocardiogram Hx of colonic polyps Wears glasses Cancer Alcohol use Degenerative disc disease Osteoarthritis Diverticulosis Smoker H/O carcinoma in situ of colon Migraines HTN (hypertension) Home Medications ?Medication ?Instructions ?Recorded ?Last Taken ?Type atenolol 25 mg tablet 100 mg PO QHS 06/08/18 06/15/24 History cholecalciferol (vitamin D3) 25 10,000 unit PO QODAY 06/08/18 06/14/24 History mcg (1,000 unit) capsule fexofenadine 60 mg tablet 180 mg PO DAILY 06/08/18 06/15/24 History magnesium 250 mg tablet 400 mg PO QHS 06/08/18 06/15/24 History multivitamin 1 ea PO DAILY 06/08/18 06/10/24 History ascorbic acid (vitamin C) 500 mg 1 g PO DAILY 05/11/23 06/15/24 History tablet (Vitamin C With Bambi Hips) turmeric root extract 500 mg 2,250 mg PO BID 05/11/23 06/10/24 History capsule vitamin B complex 1 tab PO DAILY 05/11/23 06/15/24 History glucosamine-chondroitin 250 mg-200 1 tab PO BID 06/07/23 06/10/24 History mg tablet (Osteo Bi-Flex) citrulline 600 mg capsule 1.2 g PO BID 04/21/24 06/15/24 History krill oil 500 mg capsule 1,000 mg PO QDAY 04/21/24 06/10/24 History montelukast 10 mg tablet 10 mg PO DAILY 04/21/24 06/15/24 History Allergy/AdvReac Type Severity Reaction Status Date / Time No Known Allergies Allergy Verified 06/16/24 06:48 Surgical History History of nasal surgery (~1970) Hx of colonoscopy S/P small bowel resection (~2011) s/p tonsillectomy (~1957) Social History household members: spouse current occupational status: retired Smoking Status: Current some day smoker tobacco type: cigars alcohol intake: current Alcohol type: hard liquor Past Medical/Surgical History Planned Operation Planned Operative Procedure(s): cscope S.O.S: No Previous Hospitalizations/Surgeries HX Hospitalizations: No HX of Surgeries: small intestine 2011 appendectomy also Any Problems With Anesthesia: No You/Your Family Experience Fever (Hyperthermia) With Anes: No Cholinesterase deficiency: No Cardiovascular Hx Chest Pain within Last 2 months: No Hx of Irregular Heartbeat and/or Afib: No Hx Heart Attack: No Hx Congestive Heart Failure: No Hx Rheumatic Fever: No Hx Hypertension: Yes (CONTROLLED WITH MED) Hx Internal Defibrillator: No Hx Pacemaker: No Hx Cardiac Catheterization: No Hx Cardiac Surgery/Stents/Etc.: No Hx Stress Test: No Hx Pain in Legs when Walking/Leg Cramps: No Respiratory Chronic Cough: No HX of Shortness of Breath: No Hoarseness: No Hx Chronic Obstructive Pulmonary Disease (COPD): No Hx Asthma: No Hx Emphysema: No Hx Sleep Apnea: No Hx Respiratory Tract Infection/Cold (presently): No Do You Snore Loudly (louder than talking or can be heard): No Do You Often Feel Tired/ Fatigued/ Sleepy Dring Daytime?: No Has Anyone Observed You Stop Breathing During Sleep?: No Result (for STOP score): Negative Hx Smoking: No Smoking Status: Current some day smoker Gastrointestinal Hx Gastrointestinal Disorders: Yes (diverticulosis/had colon resection for carcinoid tumor) Hx Gastrointestinal Bleed: No Hx Ulcer: No Hx Hiatal Hernia: No Difficulty Chewing/Swallowing: No Special diet followed at home: No Hx Unplanned Weight Loss of 20#: No HX Unplanned Weight Gain of 20#: No Neurological Hx Seizures: No HX Syncope/Blackout Spells/Unconsciousness: No Hx Transient Ischemic Attacks (TIA): No Hx Multiple Sclerosis: No Hx Parkinson's Disease: No Hx Head/Neck Injury: No Hx Headaches: Yes (hx of migraines) Hx Back Injury/Pain: No Recent Onset of Speech Difficulty: No Restless Legs: No Does patient have nerve stimulator: No Blood Disorder Hx Leukemia: No Bleeding Tendencies: No Hx Deep Vein Thrombosis: No Hx High Cholesterol: No Blood Transmitted Disease: No Hx Hepatitis: No Hx Cirrhosis: No Hx Anemia: No Hx Blood Disorders: No Reproduction : No Genitourinary Hx Renal Disease: No Musculoskeletal Hx Arthritis: Yes (oa) Hx Rheumatoid Arthritis: No Hx Gout: No Recent Onset of an Orthopedic Problem: No Endocrine Hx Diabetes: No Thyroid Disease: No Hx Steroid Therapy: No Psycho/Social Hx Substance Use: No Hx Alcohol Use: Yes (wine with dinner) Hx Anxiety: No Hx Depression: No Mental Illness: No Hx Dementia: No Miscellaneous Hx Cancer: Yes (small intestine) Recent Exposure to Contagious Disease: No Hx of C-Diff: No Any Loose Teeth: No Allergies No Known Allergies Allergy (Verified 06/16/24 06:48) Discharge Is Pt Admitted From a Prison, or a Care Home: No After D/C, Where Do you Plan to Go: Return Home From the [facility] History Number of Risk Factors: 3 Vital Signs Vital Signs Vital Signs: 06/16/24 06:50 06/16/24 06:50 06/16/24 07:16 Temperature 97.2 F L 97.2 F L Temperature Source Temporal Pulse Rate 54 L 54 L Respiratory Rate 18 18 Respiratory Pattern Normal Blood Pressure 141/84 H 141/84 H Blood Pressure Mean 103 Blood Pressure Source Monitor Blood Pressure Position Semi-Fowlers Blood Pressure Location Left Arm Pulse Ox 100 100 Oxygen Delivery Method Room Air Weight Weight: 283 lb 15.286 oz Body Mass Index (BMI) 37.4 Physical Exam Const alert, oriented x3 and no apparent distress General Appearance: cooperative Resp normal respiratory effort GI GI Narrative: Nondistended, soft, nontender to palpation x 4 quadrants Assessment & Plan Assessment/Plan (1) Hx of malignant carcinoid tumor of small intestine: PLAN: Patient is 68-year-old male with history of 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 He actually underwent a colonoscopy just 1 year ago but was referred for repeat endoscopy after his prep was found to be suboptimal. He denies any interval issues with his GI habits and confirms that he completed prep for today's procedure. Will now proceed to endoscopy suite for planned colonoscopy. Surgery Risks - Colonoscopy Risks Include but are not Limited To: Risks include but are not limited to: Bleeding, perforation requiring further surgery, inability to complete colonoscopy requiring barium enema.
--- NOTE | 2024-06-16 07:30 | COLBX_PTH ---
PATIENT: NADINE CARRILLO LOC: [facility] U#:[id number] AGE/SX: 68/M ROOM: RE06/16/[address]: Dr. Rock Beach MD : 1955 BED: DIS: 06/16/2024 SPEC #: [id number] RECD: 06/16/24 10:55 STATUS: INDY BALDEV #: [id number] MAC: 06/16/24 07:[address]: Rock Beach DEPT: SURGICAL PATHOLOGY RECD BY: Sarita Loo ENTERED: 06/16/24 13:18 SP TYPE: COLON BX OTHR DR: Dr. Beckie Xvaier MD Tissues: A - Rectosigmoid junction B - Cecum, NOS Procedures: Surgery Specimen Level IV HEADER OPERATION: Colonoscopy with biopsies PRE-OP DIAGNOSIS: History of malignant carcinoid tumor of small intestine TISSUE SUBMITTED: A- Rectosigmoid colon polyp biopsy, B- Mucosa ileocecal anastomosis biopsy MICROSCOPIC DIAGNOSIS A. Rectosigmoid colon polyp, biopsy: Fragments of colonic mucosa with focal minimal thickening of muscular mucosa, suggestive of submucosal leiomyoma. B. Ileoceal anastomosis mucosa, biopsy: Fragments of small intestinal and colonic mucosa, no pathologic diagnosis. See comment. NII/ 06/19/2024 COMMENT B. Please make reference to previous specimen [id number] terminal ileum, biopsy with diagnosis of no pathologic change. MICROSCOPIC DESCRIPTION Slides are reviewed. GROSS DESCRIPTION A. Received in fixative is one container labeled with the patient's name and designated Rectosigmoid colon polyp biopsy. The specimen consists of two irregular fragments of light wiggins soft tissue that in aggregate measure 0.6 x 0.3 x 0.1 cm. The specimen is totally submitted in one cassette. B. Received in fixative is one container labeled with the patient's name and designated Mucosa ileocolic anastomosis biopsy. The specimen consists of two irregular fragments of light wiggins soft tissue that in aggregate measure 0.6 x 0.3 x 0.1 cm. The specimen is totally submitted in one cassette. NII. 06/16/2024 TC:5 CPT:53412d6
--- NOTE | 2024-06-16 08:27 | OP.COLON_ITS ---
Patient Name: Demetrius Melchor Procedure Date: 06/16/2024 7:31 AM Date of : 1955 Age: 68 Procedure: Colonoscopy Indications: High risk colon cancer surveillance: Personal history of colonic polyps, High risk colon cancer surveillance: Personal history of colon cancer Providers: [place] MD Medicines: See the Anesthesia note for documentation of the administered medications Patient Profile: Last Colonoscopy: 1 year ago. Complications: No immediate complications. Estimated blood loss: Minimal. Procedure: Pre-Anesthesia Assessment: - The heart rate, respiratory rate, oxygen saturations, blood pressure, adequacy of pulmonary ventilation, and response to care were monitored throughout the procedure. After I obtained informed consent, the scope was passed under direct vision. Throughout the procedure, the patient's blood pressure, pulse, and oxygen saturations were monitored continuously. The Colonoscope was introduced through the anus and advanced to the ileocolonic anastomosis. The colonoscopy was somewhat difficult due to a tortuous colon. Successful completion of the procedure was aided by changing the patient to a supine position. The patient tolerated the procedure fairly well. The quality of the bowel preparation was adequate to identify polyps greater than 5 mm in size. Scope In: 7:43:38 AM Scope Withdrawal Time 0 hours 18 minutes 55 seconds Scope Out: 8:16:19 AM Total Procedure Duration Time 0 hours 32 minutes 41 seconds Findings: Skin tags were found on perianal exam. A localized area of mildly nodular mucosa was found at the anastomosis. Biopsies were taken with a cold forceps for histology. Estimated blood loss was minimal. Many small and large-mouthed diverticula were found in the sigmoid colon. No biopsies or other specimens were collected for this exam. A 3 mm polyp was found in the recto-sigmoid colon. The polyp was sessile. Biopsies were taken with a cold forceps for histology. Estimated blood loss was minimal. Non-bleeding internal hemorrhoids were found during retroflexion. The hemorrhoids were Grade II (internal hemorrhoids that prolapse but reduce spontaneously). No biopsies or other specimens were collected for this exam. Impression: - Perianal skin tags found on perianal exam. - Nodular mucosa at the colonic anastomosis. Biopsied. - Diverticulosis in the sigmoid colon. No specimens collected. - One 3 mm polyp at the recto-sigmoid colon. Biopsied. - Non-bleeding internal hemorrhoids. No specimens collected. Recommendation: - Discharge patient to home (via wheelchair). - Resume previous diet today. - No aspirin, ibuprofen, naproxen, or other non-steroidal anti-inflammatory drugs for 2 days after biopsy. - Await pathology results. - Repeat colonoscopy date to be determined after pending pathology results are reviewed for surveillance based on pathology results. - Telephone my office for pathology results in 1 week. Procedure Code(s): --- Professional --- 08792, Colonoscopy, flexible; with biopsy, single or multiple Diagnosis Code(s): --- Professional --- Z86.010, Personal history of colonic polyps Z85.038, Personal history of other malignant neoplasm of large intestine K63.89, Other specified diseases of intestine K64.1, Second degree hemorrhoids D12.7, Benign neoplasm of rectosigmoid junction K64.4, Residual hemorrhoidal skin tags K57.30, Diverticulosis of large intestine without perforation or abscess without bleeding CPT copyright 2021 [employer]. All rights reserved. The codes documented in this report are preliminary and upon machine stamper review may be revised to meet current compliance requirements. [place] MD 06/16/2024 8:27:13 AM This report has been signed electronically. Number of Addenda: 0 Note Initiated On: 06/16/2024 7:31 AM
--- NOTE | 2024-06-16 08:27 | OP.CCLET_ITS ---
06/16/2024 Beckie Xavier Re : Colonoscopy procedure for Demetrius Kaur Duc This procedure was performed on Sunday, June 16, 2024. My impressions and recommendations are as follows: Impressions : - Perianal skin tags found on perianal exam. - Nodular mucosa at the colonic anastomosis. Biopsied. - Diverticulosis in the sigmoid colon. No specimens collected. - One 3 mm polyp at the recto-sigmoid colon. Biopsied. - Non-bleeding internal hemorrhoids. No specimens collected. Recommendations : - Discharge patient to home (via wheelchair). - Resume previous diet today. - No aspirin, ibuprofen, naproxen, or other non-steroidal anti-inflammatory drugs for 2 days after biopsy. - Await pathology results. - Repeat colonoscopy date to be determined after pending pathology results are reviewed for surveillance based on pathology results. - Telephone my office for pathology results in 1 week. My findings are described in the full procedure note, which is enclosed. If I can be of further assistance, please feel free to contact me at Doctor phone number(s): , Work: . Sincerely, Rock [place] MD 06/16/2024 8:27:13 AM This report has been signed electronically.
--- NOTE | 2024-06-16 08:27 | PCM.POST.ANE ---
Anesthesia: Postop Eval I Current Vital Signs Temperature: 97.3 F Pulse Rate: 63 Blood Pressure: 106/68 Respiratory Rate: 16 Pulse Ox: 97 Oxygen Delivery Method: Room Air Assessment Airway patent: Yes Spontaneous unlabored respirations: Yes Mental status: Awake and Calm nausea: No Vomiting: No Anesthesia Complication: No Fluid Hydration Crystalloid volume administer (ml): 800 Total IV fluid infused: 800 Progress Note Anesthesia document: Postop Eval 1 completed: Yes
--- NOTE | 2024-06-16 12:45 | PCM.POSTANE2 ---
Anesthesia Postop Eval I Sum Postop Eval Completion status Anesthesia document: Postop Eval 1 completed: Yes Anesthesia Postop Eval I Summary Anesthesia Postop Eval I Summary: Anesthesia Postop Eval I: Assessment Summary Airway patent Yes 06/16/24 08:29 [email or web address] Spontaneous unlabored Yes 06/16/24 08:29 [email or web address] respirations Mental status Awake,Calm 06/16/24 08:29 [email or web address] nausea No 06/16/24 08:29 [email or web address] Vomiting No 06/16/24 08:29 [email or web address] Anesthesia Postop Eval I: Fluid Summary Crystalloid volume administer 800 06/16/24 08:29 [email or web address] (ml) Colloids volume administered ( ml) Blood Product volume administered (ml) Total IV fluid infused 800 06/16/24 08:29 [email or web address] Anesthesia Postop Eval I: Summary Notes Anesthesia Complication No 06/16/24 08:29 [email or web address] Anesthesia Complication Comment: Post-operative progress note Anesthesia: Postop Eval II Evaluation Mental status: Awake Pain Level: 0 nausea: No Vomiting: No
== END 2024-06-16 09:28 | disposition home or self-care (01) ==
LOC: EN 06:28 → AC 06:30
PROVIDERS: PCP Internal Medicine; Referring Provider Surgery; Visit Provider Surgery
PROC: 0DJD8ZZ Inspection of Lower Intestinal Tract, Via Natural or Artificial Opening Endoscopic (ICD-10-PCS; CPT 45378; principal; 2024-06-16 07:25)
DX: Z12.11 Encounter for screening for malignant neoplasm of colon (principal); D12.7 Benign neoplasm of rectosigmoid junction; I10 Essential (primary) hypertension; K64.1 Second degree hemorrhoids; K57.30 Diverticulosis of large intestine without perforation or abscess without bleeding; K63.89 Other specified diseases of intestine; K64.4 Residual hemorrhoidal skin tags; F17.290 Nicotine dependence, other tobacco product, uncomplicated; Z98.0 Intestinal bypass and anastomosis status; Z90.49 Acquired absence of other specified parts of digestive tract; Z79.899 Other long term (current) drug therapy; Z86.010 Personal history of colon polyps; Z85.060 Personal history of malignant carcinoid tumor of small intestine
CPT/HCPCS: 45380; 88305; J7120; J2405